=== PATIENT | male | born 1995 | race African-American/Black ===

== ENCOUNTER 2024-11-05 07:38 | Emergency (ER) | payer SELFPAY ==
[~2024-11-05] VITALS: Ht 193 cm; Wt 91.0 kg
[2024-11-05 07:40] VITALS: O2SAT 98
[2024-11-05] MEDS ORDERED: IBUP-2029 MT (08:37)
[2024-11-05] MEDS: KETOROLAC 30MG/ML VIAL IM ONE (08:41)
[2024-11-05 08:50] VITALS: BP 134/69; PULSE 80; RESP 14; TEMP 37.1; O2SAT 98
== END 2024-11-05 08:54 | disposition home or self-care (01) ==
LOC: ER 07:38
DX: S93.401A Sprain of unspecified ligament of right ankle, initial encounter (principal); X58.XXXA Exposure to other specified factors, initial encounter; Y93.67 Activity, basketball; Y92.89 Other specified places as the place of occurrence of the external cause; Y99.8 Other external cause status
CPT/HCPCS: 73600; 96372; 99283; J1885; Z7610 ×2; A6449; A4606